=== PATIENT | male | born 1965 | race Caucasian/White ===

== ENCOUNTER 2020-02-07 19:03 | Emergency (ER) | payer OTHER, BC ==
[2020-02-07] MEDS ORDERED: HYDROCODONE/ACETAMINOPHEN 5-325 MG (6 TAB/ER DISP) PO PRN (19:44)
--- NOTE | 2020-02-07 19:46 | ER Document Report ---
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 Patient complains of pain with range of motion. Patient is left-hand dominant. Patient denies any loss of mobility or function although does complain of pain with range of motion. Associated Symptoms: Other - Right arm pain Exacerbated by: Movement Relieved by: Remaining still Similar symptoms previously: No Recently seen / treated by doctor: No - ROS ROS below otherwise negative: Yes Systems Reviewed and Negative: Yes All other systems reviewed and negative - GASTROINTESTINAL Gastrointestinal: DENIES: Nausea - MUSCULOSKELETAL Musculoskeletal: REPORTS: Extremity pain. 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 Family History: Reviewed & Not Pertinent - Medical History Medical History: Negative Past Surgical History: Reports: Hx Appendectomy, Hx Orthopedic Surgery Vertical Provider Document - CONSTITUTIONAL Exam Limitations: No Limitations General Appearance: WD/WN, No Apparent Distress - HEENT HEENT: Atraumatic, Normocephalic - NECK Neck: Normal Inspection - RESPIRATORY Respiratory: Breath Sounds Normal, No Respiratory Distress - CARDIOVASCULAR Cardiovascular: Regular Rate, Regular Rhythm Pulses: Normal: Radial - BACK Back: Normal Inspection - MUSCULOSKELETAL/EXTREMETIES Musculoskeletal/Extremeties: MAEW, Tender - Tenderness with palpation over the bicep muscle, no muscle deformity, patient with tenderness over the proximal third of the right forearm, No Edema. negative: Eccymosis Notes: Patient with normal strength and muscle tone to bilateral upper extremities - NEURO Level of Consciousness: Awake, Alert, Appropriate Motor/Sensory: No Motor Deficit, No Sensory Deficit - DERM Integumentary: Warm, Dry, No Rash Course - Re-evaluation Re-evalutation: 02/07/20 19:50 Suspect likely muscle strain at this time, will treat symptomatically and refer to patient's Workmen's Comp. provider for further evaluation at this time. - Vital Signs Vital signs: Temp Pulse Resp BP Pulse Ox 99.1 F 109 H 18 133/82 H 97 02/07/20 19:10 02/07/20 19:10 02/07/20 19:10 02/07/20 19:10 02/07/20 19:10 Discharge - Discharge Clinical Impression: Muscle strain of right upper extremity Qualifiers: Encounter type: initial encounter Qualified Code(s): S46.911A - Strain of unspecified muscle, fascia and tendon at shoulder and upper arm level, right arm, initial encounter Condition: Stable Disposition: HOME, SELF-CARE Instructions: Ice & Elevation ([facility]), Muscle Relaxers ([facility]), Muscle Strain ([facility]) Additional Instructions: Return immediately for any new or worsening symptoms Followup with your primary care provider, call tomorrow to make a followup appointment Follow-up with your Workmen's Comp. provider for further evaluation Follow-up with orthopedics for any persistent pain or problems Prescriptions: Cyclobenzaprine HCl [Flexeril 10 Mg Tablet] 10 mg PO TID #15 tablet Naproxen [Naprosyn 250 Nmg Tablet] 1 tab PO BID #14 tablet Forms: Return to Work Referrals: [facility] [Provider Group] - Follow up as needed
[2020-02-07 19:54] VITALS: BP 123/79
== END 2020-02-07 19:55 | disposition home or self-care (01) ==
LOC: ER 19:03
DX: S46.911A Strain of unspecified muscle, fascia and tendon at shoulder and upper arm level, right arm, initial encounter (principal); X58.XXXA Exposure to other specified factors, initial encounter; Y99.0 Civilian activity done for income or pay
CPT/HCPCS: 99283